=== PATIENT | female | born 1985 | race Caucasian/White ===

== ENCOUNTER 2017-03-02 15:26 | Outpatient (CLI) | payer OTHER | END 2017-03-02 23:00 | disposition home or self-care (01) | LOC: LAB SRH 15:26 | DX: F32.9 Major depressive disorder, single episode, unspecified (principal); R11.0 Nausea; M19.90 Unspecified osteoarthritis, unspecified site; Z83.3 Family history of diabetes mellitus | CPT/HCPCS: 90073; 90074; 90075; 90077; 90078; 90100; 91096; 91286; 92690; 93140; 95059; 99777 ==